=== PATIENT | male | born 1965 | race Two or more races ===

== ENCOUNTER 2018-10-12 15:11 | Emergency (ER) | payer SELFPAY ==
[~2018-10-12] VITALS: Ht 162.6 cm; Wt 83.0 kg
--- NOTE | 2018-10-12 17:14 | PHYS DOC ---
Adult General Chief Complaint Chief Complaint: DIZZY/LIGHT HEADED HPI HPI Patient is a 52 year old male who presents to the emergency room with complaints of a severe posterior headache and dizziness that started after eating prior to arrival. Patient reports history of headaches and states that the pain is similar to his previous headaches. He denies any acute vision changes, states that he has noticed that his vision is more blurry over the last several weeks. He denies seeing any spots, floaters, or bright lights. Patient denies any vomiting, or diarrhea. He states that he did feel nauseated with the onset of symptoms but currently denies any nausea. Patient states that if he keeps eyes closed the dizziness improves, he denies any syncope or problems with coordination or speech. In addition, patient reports pain in the right side of his chest and increases with movement of his right arm or deep breath for about 2 weeks. He denies any fever, shortness of breath, diaphoresis , palpitations, or known injury. He states that the pain in the right side of his chest is intermittent. Currently he denies chest pain and rates his headache at a 7 out of 10 on the pain scale, closing his eyes is the only thing that helps to relieve his pain. Review of Systems Review of Systems Constitutional: Denies fever or chills [] Eyes: Denies redness, or eye pain; See HPI HENT: Denies nasal congestion or sore throat [] Respiratory: Denies cough or shortness of breath [] Cardiovascular: Denies palpitations, or syncope; complains of R chest pain that increases with movement of RUE and deep breath GI: Denies abdominal pain, nausea, vomiting, bloody stools or diarrhea [] : Denies dysuria or hematuria [] Musculoskeletal: Denies back pain or joint pain [] Integument: Denies rash or skin lesions [] Neurologic: See HPI Endocrine: Denies polyuria or polydipsia [] All other systems were reviewed and found to be within normal limits, except as documented in this note. Current Medications Current Medications Current Medications Medications (Trade) Dose Ordered Sig/Tanesha Start Time Stop Time Status Last Admin Dose Admin Ketorolac Tromethamine (Toradol 15mg Vial) 15 mg 1X ONCE 10/12/18 17:15 10/12/18 17:42 DC 10/12/18 18:04 15 MG Ondansetron HCl (Zofran) 4 mg 1X ONCE 10/12/18 17:15 10/12/18 17:42 DC 10/12/18 18:04 4 MG Prochlorperazine Edisylate (Compazine) 10 mg 1X ONCE 10/12/18 17:15 10/12/18 17:42 DC 10/12/18 18:05 10 MG Sodium Chloride 1,000 ml @ 1,000 mls/hr 1X ONCE 10/12/18 17:15 10/12/18 18:14 DC 10/12/18 18:03 1,000 MLS/HR Allergies Allergies Allergies Coded Allergies Type Severity Reaction Last Updated Verified No Known Drug Allergies 10/12/18 No Physical Exam Physical Exam Constitutional: Well developed, well nourished, no acute distress, non-toxic appearance. [] HENT: Normocephalic, atraumatic, bilateral external ears normal, oropharynx moist, no oral exudates, nose normal. [] Eyes: PERRLA, EOMI, no nystagmus conjunctiva normal, no discharge. [] Neck: Normal range of motion, no tenderness, supple, no stridor. [] Cardiovascular:Heart rate regular rhythm, no murmur [] Lungs & Thorax: Bilateral breath sounds clear to auscultation [] Abdomen: Bowel sounds normal, soft, no tenderness, no masses, no pulsatile masses. [] Skin: Warm, dry, no erythema, no rash. [] Extremities: No tenderness, no cyanosis, no clubbing, ROM intact, no edema. [] Neurologic: Alert and oriented X 3, normal motor function, normal sensory function, no focal deficits noted, NIH stroke scale negative score 0. [] Psychologic: Affect normal, judgement normal, mood normal. [] Current Patient Data Vital Signs Vital Signs Date Time Temp Pulse Resp B/P (MAP) Pulse Ox O2 Delivery O2 Flow Rate FiO2 10/12/18 19:57 70 18 98 10/12/18 16:58 98.4 122/74 (90) Room Air 98.4 Lab Values Laboratory Tests Test 10/12/18 17:45 10/12/18 18:23 White Blood Count 6.0 x10^3/uL (4.0-11.0) Red Blood Count 5.02 x10^6/uL (4.30-5.70) Hemoglobin 16.0 g/dL (13.0-17.5) Hematocrit 46.0 % (39.0-53.0) Mean Corpuscular Volume 92 fL (79-100) Mean Corpuscular Hemoglobin 32 pg (25-35) Mean Corpuscular Hemoglobin Concent 35 g/dL (31-37) Red Cell Distribution Width 13.4 % (11.5-14.5) Platelet Count 150 x10^3/uL (140-400) Neutrophils (%) (Auto) 59 % (31-73) Lymphocytes (%) (Auto) 26 % (24-48) Monocytes (%) (Auto) 9 % (0-9) Eosinophils (%) (Auto) 5 % (0-3) H Basophils (%) (Auto) 1 % (0-3) Neutrophils # (Auto) 3.6 x10^3uL (1.8-7.7) Lymphocytes # (Auto) 1.6 x10^3/uL (1.0-4.8) Monocytes # (Auto) 0.5 x10^3/uL (0.0-1.1) Eosinophils # (Auto) 0.3 x10^3/uL (0.0-0.7) Basophils # (Auto) 0.1 x10^3/uL (0.0-0.2) Sodium Level 137 mmol/L (136-145) Potassium Level 3.6 mmol/L (3.5-5.1) Chloride Level 104 mmol/L (98-107) Carbon Dioxide Level 30 mmol/L (21-32) Anion Gap 3 (6-14) L Blood Urea Nitrogen 11 mg/dL (8-26) Creatinine 1.0 mg/dL (0.7-1.3) Estimated GFR (Cockcroft-Gault) 79.1 BUN/Creatinine Ratio 11 (6-20) Glucose Level 119 mg/dL (70-99) H Calcium Level 9.4 mg/dL (8.5-10.1) Total Bilirubin 0.3 mg/dL (0.2-1.0) Aspartate Amino Transferase (AST) 31 U/L (15-37) Alanine Aminotransferase (ALT) 81 U/L (16-63) H Alkaline Phosphatase 101 U/L (46-116) Troponin I Quantitative < 0.017 ng/mL (0.000-0.055) Total Protein 7.6 g/dL (6.4-8.2) Albumin 4.0 g/dL (3.4-5.0) Albumin/Globulin Ratio 1.1 (1.0-1.7) Urine Collection Type Unknown Urine Color Yellow Urine Clarity Clear Urine pH 8.0 Urine Specific Roberts 1.010 Urine Protein Negative mg/dL (NEG-TRACE) Urine Glucose (UA) Negative mg/dL (NEG) Urine Ketones (Stick) Negative mg/dL (NEG) Urine Blood Negative (NEG) Urine Nitrite Negative (NEG) Urine Bilirubin Negative (NEG) Urine Urobilinogen Dipstick 0.2 mg/dL (0.2 mg/dL) Urine Leukocyte Esterase Negative (NEG) Urine RBC Rare /HPF (0-2) Urine WBC 0 /HPF (0-4) Urine Squamous Epithelial Cells None /LPF Urine Bacteria 0 /HPF (0-FEW) Laboratory Tests 10/12/18 17:45 Laboratory Tests 10/12/18 17:45 EKG EKG SR no STEMI read by Dr. Sneed[] Radiology/Procedures Radiology/Procedures PROCEDURE: CHEST PA & LATERAL Examination: CHEST PA LATERAL History: ER PATIENT. DIZZINESS. Chest pain. Comparison/Correlation: None Findings: PA and lateral views of chest were obtained. Heart size and pulmonary vasculature are normal. No infiltrate or effusion. No pneumothorax. Bony structures are unremarkable. Impression: No active disease.[] PROCEDURE: CT HEAD WO CONTRAST CT HEAD WO CONTRAST History: Dizziness today Comparison: None. Technique: Noncontrast CT imaging was performed of the head. Exposure: One or more of the following individualized dose reduction techniques were utilized for this examination: 1. Automated exposure control 2. Adjustment of the mA and/or kV according to patient size 3. Use of iterative reconstruction technique. Findings: No acute extra-axial or parenchymal hemorrhage is identified. There is no significant intra-axial mass effect, midline shift, or extra-axial fluid collection. The her-white differentiation of the major vascular territories is preserved. The ventricles, sulci, and cisterns are within normal limits in size and configuration. The mastoid air cells and the visualized paranasal sinuses are aerated. No acute calvarial abnormality is identified. Impression: 1. No acute intracranial abnormality is identified. Course & Med Decision Making Course & Med Decision Making Pertinent Labs and Imaging studies reviewed. (See chart for details) Dx: headache, dizziness, right sided chest pain EKG no STEMI, troponin <0.017, CBC unremarkable, UA unremarkable, glucose 119, Alt 81 Pt was given 15 mg of toradol, 4 mg of zofran, 10 mg of Compazine and 1 L of NS , Reports feeling better and no headache after medications. CT head was negative for acute findings. CXR unremarkable Patient verbalized an understanding of home care, medications, follow-up, and return to ED instructions and was in agreement with the plan of care. [] Dragon Disclaimer Dragon Disclaimer This electronic medical record was generated, in whole or in part, using a voice recognition dictation system. Departure Departure Impression: Primary Impression: Headache Additional Impressions: Dizziness Right-sided chest pain Disposition: HOME, SELF-CARE Condition: STABLE Referrals: NO PCP (PCP) Patient Instructions: Chest Pain (Nonspecific), [id number], Dizziness, Easy- to-Read, General Headache Without Cause, [id number] Additional Instructions: Home to rest, tylenol or ibuprofen as needed for pain. Increase clear fluids. Follow up with your doctor this week, return to the ER if symptoms worsen. NIHSS Stroke Scale NIH Stroke Scale: NIH Stroke Scale Response (Comments) Value Level of Consciousness: 0 Alert/Responsive 0 LOC Questions: 0 Answers both correctly 0 LOC Commands: 0 Performs both tasks 0 Best Gaze: 0 Normal 0 Visual: 0 No visual loss 0 Facial Palsy: 0 Normal, symmetrical 0 Motor - Left Arm 0 No drift 0 Motor - Right Arm 0 No drift 0 Motor - Left Leg 0 No drift 0 Motor: Right Leg 0 No drift 0 Limb Ataxia: 0 Absent 0 Sensory: 0 No loss 0 Best Language: 0 Normal 0 Dysathria: 0 Normal 0 Extinction and Inattention: 0 Normal 0 Total 0 Problem Qualifiers Primary Impression: Headache Headache type: unspecified Headache chronicity pattern: acute headache Intractability: not intractable Qualified Codes: R51 - Headache CLEMENTINA MISTRY BRAND COORDINATOR Oct 12, 2018 17:14
--- NOTE | 2018-10-12 17:38 | RAD ---
CT HEAD WO CONTRAST History: Dizziness today Comparison: None. Technique: Noncontrast CT imaging was performed of the head. Exposure: One or more of the following individualized dose reduction techniques were utilized for this examination: 1. Automated exposure control 2. Adjustment of the mA and/or kV according to patient size 3. Use of iterative reconstruction technique. Findings: No acute extra-axial or parenchymal hemorrhage is identified. There is no significant intra-axial mass effect, midline shift, or extra-axial fluid collection. The her-white differentiation of the major vascular territories is preserved. The ventricles, sulci, and cisterns are within normal limits in size and configuration. The mastoid air cells and the visualized paranasal sinuses are aerated. No acute calvarial abnormality is identified. Impression: 1. No acute intracranial abnormality is identified. Electronically signed by: Mehrdad Ayala MD (10/12/2018 5:34 PM) [id number]
[2018-10-12 17:55] LABS: BASO # 0.1 x10^3/uL (0.0-0.2); BASO % 1 % (0-3); EOS # 0.3 x10^3/uL (0.0-0.7); EOS % 5 % (0-3); LYMPH # 1.6 x10^3/uL (1.0-4.8); LYMPH % 26 % (24-48); MEAN CORPUSCULAR HEMOGLOBIN 32 pg (25-35); MEAN CORPUSCULAR HGB CONC 35 g/dL (31-37); MEAN CORPUSCULAR VOLUME 92 fL (79-100); MONO # 0.5 x10^3/uL (0.0-1.1); MONO % 9 % (0-9); NEUT # 3.6 x10^3uL (1.8-7.7); NEUT % 59 % (31-73); PLATELET COUNT 150 x10^3/uL (140-400); RED BLOOD COUNT 5.02 x10^6/uL (4.30-5.70); RED CELL DISTRIBUTION WIDTH 13.4 % (11.5-14.5)
[2018-10-12 18:03] LABS: CALCIUM 9.4 mg/dL (8.5-10.1); GFR 79.1; POTASSIUM 3.6 mmol/L (3.5-5.1)
[2018-10-12] MEDS: IV NORMAL SALINE 1000ML BAG 1,000 ML IV ONE (18:03)
[2018-10-12] MEDS: ONDANSETRON PF 4 MG/2 ML VIAL. IV ONE (18:04)
[2018-10-12] MEDS: KETOROLAC 15 MG/ML VIAL. IV ONE (18:04)
[2018-10-12] MEDS: PROCHLORPERAZINE 10 MG/2 ML VIAL. IV ONE (18:05)
[2018-10-12 18:09] LABS: ALBUMIN/GLOBULIN RATIO 1.1 (1.0-1.7); TOTAL BILIRUBIN 0.3 mg/dL (0.2-1.0); TOTAL PROTEIN 7.6 g/dL (6.4-8.2)
--- NOTE | 2018-10-12 18:39 | EKG ---
[facility] [address] [place] [address] Test Date: 2018-10-12 Test Time: 17:11:34 Pat Name: SONYA SALGADO Department: Room: Gender: M Japanese Tutor: : 1965 Requested By: CLEMENTINA MISTRY Order Number: [id number] Reading MD: Measurements Intervals [place] Rate: 75 P: 42 WA: 148 QRS: 17 QRSD: 84 T: -17 QT: 356 QTc: 400 Interpretive Statements SINUS RHYTHM QRS(T) CONTOUR ABNORMALITY CONSIDER ANTEROSEPTAL MYOCARDIAL DAMAGE POSSIBLY ABNORMAL ECG RI6.01 No previous ECG available for comparison
[2018-10-12 18:42] LABS: BILIRUBIN,URINE NEGATIVE (NEG); CLARITY,URINE CLEAR; COLOR,URINE YELLOW; NITRITE,URINE NEGATIVE (NEG); PROTEIN,URINE NEGATIVE (NEG-TRACE); UROBILINOGEN,URINE 0.2 mg/dL (0.2 mg/dL)
[2018-10-12 18:50] LABS: BACTERIA,URINE 0 /HPF (0-FEW); RBC,URINE RARE /HPF (0-2); WBC,URINE 0 /HPF (0-4)
[2018-10-12 19:57] VITALS: BP 112/66
--- NOTE | 2018-10-12 21:42 | RAD ---
Examination: CHEST PA LATERAL History: ER PATIENT. DIZZINESS. Chest pain. Comparison/Correlation: None Findings: PA and lateral views of chest were obtained. Heart size and pulmonary vasculature are normal. No infiltrate or effusion. No pneumothorax. Bony structures are unremarkable. Impression: No active disease. Electronically signed by: Arsh Pickens MD (10/12/2018 9:38 PM) [facility]
== END 2018-10-12 20:00 | disposition home or self-care (01) ==
LOC: ER 15:11
DX: R42 Dizziness and giddiness (principal); R51 Headache; R07.89 Other chest pain; R11.0 Nausea
CPT/HCPCS: 36415; 70450; 71046; 80053; 81001; 84484; 85025; 93005; 96361; 96374; 96375; J0780; J1885; J2405; J7030; 99284-25